=== PATIENT | female | born 1985 | race Caucasian/White ===

== ENCOUNTER 2021-01-21 15:22 | Emergency (ER) | payer SELFPAY ==
[2021-01-21] MEDS ORDERED: AMOXICILLIN875 MG PO (17:02)
[2021-01-21 17:15] VITALS: BP 121/77
== END 2021-01-21 17:15 | disposition home or self-care (01) | DRG 153 ==
LOC: ED 15:22
DX: J03.90 Acute tonsillitis, unspecified (principal); F17.210 Nicotine dependence, cigarettes, uncomplicated; Z20.822 Contact with and (suspected) exposure to COVID-19

== ENCOUNTER 2022-04-16 21:11 | Emergency (ER) | payer SELFPAY ==
[~2022-04-16] VITALS: Ht 152.4 cm; Wt 56.0 kg
[~2022-04-16 21:11] MED LIST: AMOXICILLIN875 MG PO
[2022-04-16] MEDS ORDERED: AMOXICILLIN500 MG PO ×2 (22:22→23:16)
[2022-04-16] MEDS ORDERED: ULTRAM50 M1 PO ×2 (22:22→23:16)
[2022-04-16 23:20] VITALS: BP 112/72
== END 2022-04-16 23:20 | disposition home or self-care (01) | DRG 159 ==
LOC: ED 21:11
DX: K04.7 Periapical abscess without sinus (principal); S02.5XXA Fracture of tooth (traumatic), initial encounter for closed fracture; F17.200 Nicotine dependence, unspecified, uncomplicated; X58.XXXA Exposure to other specified factors, initial encounter